=== PATIENT | female | born 1960 | race Caucasian/White ===

== ENCOUNTER → 2020-10-21 15:18 | Outpatient (CLI) | payer OTHER, SELFPAY ==
--- NOTE | ~2020-10-21 | XR_ITS ---
XR wrist RT min 3V DATE: 10/21/2020 15:49 INDICATION: Painful basal joint TECHNIQUE: 4 views COMPARISON: None FINDINGS: There is severe osteoarthritis at the first carpometacarpal joint with hypertrophic spurrin g. Approximately 4 x 5.5 mm benign cystic lesion or erosion of the lunate bone with sclerotic margin, ex tending through the proximal medial cortex of the lunate bone. No fracture or dislocation, periosteal reaction or bone destruction. No chondrocalcinosis. IMPRESSION: Severe osteoarthritic change at the first carpal metacarpal joint Benign prominent cyst or erosion at the proximal medial aspect of the lunate bone Reviewed, dictated and finalized at location A. IMPRESSION: Severe osteoarthritic change at the first carpal metacarpal joint Benign prominent cyst or erosion at the proximal medial aspect of the lunate naman ne
--- NOTE | ~2020-10-21 | XR_ITS ---
XR wrist LT min 3V DATE: 10/21/2020 15:49 INDICATION: Painful basal joint, primary osteoarthritis. TECHNIQUE: 4 views COMPARISON: None FINDINGS: There is severe osteoarthritic change at the first carpometacarpal joint with joint space n arrowing and degenerative spurring. Approximately 4.9 x 5 mm calcification is noted at the lateral aspect of the carpus. Benign proximal lunate cyst. No fracture or dislocation, periosteal reaction or bone destruction is evident.. IMPRESSION: Degenerative changes, most pronounced at the first carpometacarpal joint Reviewed, dictated and finalized at location A.
== END ==
PROVIDERS: Visit Provider Plastic Surgery
DX: M19.031 Primary osteoarthritis, right wrist (principal); M19.032 Primary osteoarthritis, left wrist; M18.0 Bilateral primary osteoarthritis of first carpometacarpal joints
CPT/HCPCS: 73110

== ENCOUNTER → 2020-12-26 16:25 | Outpatient (CLI) | payer OTHER, SELFPAY ==
--- NOTE | ~2020-12-26 | MM_ITS ---
EXAMINATION: MM screening [facility] BI w lee HISTORY: Screening mammogram TECHNIQUE: Craniocaudal and mediolateral oblique 3-D tomosynthesis images were obtained and synthetic 2-D images were generated. CAD analysis was submitted and interpreted. COMPARISON: 03/03/2018, 02/21/2018, 06/14/2014, 01/28/2012 BREAST PARENCHYMAL COMPOSITION: There are scattered areas of fibroglandular density. FINDINGS: Subareolar asymmetry of the right breast on the mediolateral oblique view has an appearance similar to prior mammograms. There is no evidence of suspicious mass, calcification, or architectura l distortion to suggest malignancy in either breast. There has been no suspicious interval change. IMPRESSION: 1. No mammographic evidence of malignancy. 2. Recommend routine screening mammography in one year. BI-RADS Category 2: Benign finding(s). Reviewed, dictated and finalized at location A.
== END ==
PROVIDERS: PCP Physician Assistant; Visit Provider Physician Assistant
DX: Z12.31 Encounter for screening mammogram for malignant neoplasm of breast (principal)
CPT/HCPCS: 77063; 77067

== ENCOUNTER → 2022-02-09 16:48 | Outpatient (CLI) | payer OTHER, SELFPAY ==
--- NOTE | ~2022-02-09 | MM_ITS ---
EXAMINATION: MM screening [facility] BI w lee HISTORY: Screening mammogram TECHNIQUE: Craniocaudal and mediolateral oblique 3-D tomosynthesis images were obtained and synthetic 2-D images were generated. CAD analysis was submitted and interpreted. COMPARISON: 12/26/2020, 03/03/2018, 02/21/2018 BREAST PARENCHYMAL COMPOSITION: There are scattered areas of fibroglandular density. FINDINGS: There is no suspicious mass, calcification, or architectural distortion to suggest malignan cy in either breast. There has been no suspicious interval change. IMPRESSION: 1. No mammographic evidence of malignancy. 2. Recommend routine screening mammography in one year. BI-RADS Category 1: Negative Reviewed, dictated and finalized at location A.
== END ==
PROVIDERS: PCP Physician Assistant; Visit Provider Physician Assistant
DX: Z12.31 Encounter for screening mammogram for malignant neoplasm of breast (principal)
CPT/HCPCS: 77063; 77067

== ENCOUNTER 2022-09-28 18:50 | Emergency (ER) | payer OTHER, SELFPAY ==
--- NOTE | ~2022-09-28 | XR_ITS ---
XR knee LT min 4V 09/28/2022 19:18 Indication: Left knee pain Procedure: 5 views left knee Comparison: No prior studies for comparison. Findings: There is anatomic alignment. No acute fracture or traumatic malalignment. There is OSSIFICA TION of the medial collateral ligament at the proximal insertion on the medial femoral condyle (i.e. Jackelyn Stieda lesion). Impression: 1: No acute bone or joint abnormality. Reviewed, dictated and finalized at location A. Impression: 1: No acute bone or joint abnormality.
[2022-09-28 18:56] VITALS: BP 153/87; PULSE 113; RESP 16; TEMP 36.9; O2SAT 97
--- NOTE | 2022-09-28 18:56 | ED.LOWEXIN ---
HPI - Extremity Injury (Lower) General Chief Complaint: Extremity Injury, Lower Stated Complaint: left leg pain Time Seen by Provider: 09/28/22 18:58 Source: patient Mode of arrival: ambulatory Limitations: no limitations History of Present Illness HPI Narrative: 62 y/o female presented for c/o pain behind the left knee after injury this evening. She states she was performing jumping jacks, she landed wall and felt immediate pain to the back of the knee, at about 1730. Endorses pain is only with ambulating. No pain at rest. Rates pain 7/10 with weight-bearing. She denies numbness, tingling, weakness, or swelling to the lower extremity. Has not taken anything for pain. Related Data Allergies Allergy/AdvReac Type Severity Reaction Status Date / Time No Known Allergies Allergy Verified 09/28/22 18:59 Review of Systems Review of Systems: CONSTITUTIONAL: Denies body aches, fever, chills EYES: Denies visual changes ENT: Denies rhinorrhea, congestion CARDIOVASCULAR: Denies chest pain, palpitations, or edema. RESPIRATORY: Denies cough or dyspnea. GASTROINTESTINAL: Denies abdominal pain, nausea, vomiting, or diarrhea. SKIN: Denies rash, itching, or wounds. MUSCULOSKELETAL: per HPI NEUROLOGIC: Denies headache, numbness, tingling, or weakness. All systems reviewed & are unremarkable except as noted in HPI and below PMFSH Past Medical History Medical History (Updated 09/28/22 @ 19:25 by Neida Temple APRN) Dupuytrens contracture Social History Social History Smoking status: Never smoker Alcohol intake: never Comments At time of signature, I have reviewed and agree with nursing past medical, surgical, social and family history unless otherwise noted. Please see nursing chart for further information. There is no relevant family history pertinent to the presenting complaint Exam Narrative: GENERAL: Well appearing and in no acute distress. HEAD: Normocephalic, atraumatic. NECK: Supple. CHEST: Speaks in full sentences. No respiratory distress. HEART: Regular rate and rhythm. Normal and equal peripheral pulses. EXTREMITIES: LLE has normal strength and sensation, normal range of motion at knee. No edema or ecchymosis, No point tenderness. No open wounds, or obvious deformity; alignment normal, pulse palpable and equal bilaterally, skin warm, dry, pink. Capillary refill less than 3 seconds. Ambulating with limp due to pain. SKIN: Warm, dry, no rash. NEURO: Alert and oriented x3. PSYCH: Normal mood and affect Course Course Emergency Course: Patient is aware of diagnosis, understands and agrees to treatment plan. Anticipatory guidance given. Patient agrees to follow-up as directed and is aware of reasons to seek care at the emergency department. Portions of this record may have been created with voice recognition software Level of Care: Express Care Visit Vital Signs Vital signs: Vital Signs Temperature 98.5 F 09/28/22 18:56 Pulse Rate 113 H 09/28/22 18:56 Respiratory Rate 16 09/28/22 18:56 Blood Pressure 153/87 H 09/28/22 18:56 Pulse Oximetry 97 09/28/22 18:56 Oxygen Delivery Room Air 09/28/22 18:56 Temperature 98.5 F 09/28/22 18:59 Pulse Rate 113 H 09/28/22 18:59 Respiratory Rate 16 09/28/22 18:59 Blood Pressure 153/87 H 09/28/22 18:59 Pulse Oximetry 97 09/28/22 18:59 Oxygen Delivery Room Air 09/28/22 18:59 Reviewed MDM - Extremity Injury (Lower) MDM Narrative Medical decision making narrative: Results of x-ray reviewed with patient. Discussed physical exam findings. Advised supportive measures and signs/symptoms to go to the ER. Pt is appropriate for outpt treatment and f/u. Differential Diagnosis Differential diagnosis: Likely acute internal derangement of knee and other (Arthralgia, joint effusion, bursitis, tendonitis, sprain/strain) Discharge Plan Discharge Clinical Impression: Acute knee
[2022-09-28 18:59] VITALS: BP 153/87; PULSE 113; RESP 16; TEMP 36.9; O2SAT 97
== END 2022-09-28 19:43 | disposition home or self-care (01) ==
PROVIDERS: Emergency Provider Nurse Practitioner Family
DX: M25.562 Pain in left knee (principal)
CPT/HCPCS: 73564; 99213; G0463

== ENCOUNTER → 2022-09-30 09:38 | Outpatient (CLI) | payer OTHER, SELFPAY ==
--- NOTE | ~2022-09-30 | XR_ITS ---
Right Hand Technique: PA, oblique, and lateral views were obtained. Clinical History: Posterior arthritis Findings: No acute fracture or dislocation is seen. There is moderate degenerative change at the firs t CMC joint. Soft tissues are unremarkable. Impression: Moderate degenerative change at the first CMC joint. Reviewed, dictated and finalized at [facility]. Impression: Moderate degenerative change at the first CMC joint.
--- NOTE | ~2022-09-30 | XR_ITS ---
Left Hand Technique: PA, oblique, and lateral views were obtained. Clinical History: Osteoarthritis Findings: No acute fracture or dislocation is seen. There is apparent boutonniere deformity of the fi fth digit. There is moderate degenerative change at the first CMC joint. Soft tissues are unremarkabl e. Impression: No acute fracture or dislocation seen. Moderate degenerative change at the first CMC joint. Boutonniere deformity of the fifth digit. Reviewed, dictated and finalized at location M. Impression: No acute fracture or dislocation seen. Moderate degenerative change at the first CMC joint. Boutonniere deformity of the fifth digit.
== END ==
PROVIDERS: PCP Nurse Practitioner Family; Visit Provider Nurse Practitioner Family
DX: M19.041 Primary osteoarthritis, right hand (principal); M19.042 Primary osteoarthritis, left hand
CPT/HCPCS: 73130

== ENCOUNTER → 2023-04-02 10:19 | Outpatient (CLI) | payer OTHER, SELFPAY ==
--- NOTE | ~2023-04-02 | MM_ITS ---
EXAMINATION: MM screening [facility] w lee HISTORY: Screening mammogram TECHNIQUE: Craniocaudal and mediolateral oblique 3-D tomosynthesis images were obtained and synthetic 2-D images were generated. CAD analysis was submitted and interpreted. COMPARISON: 02/09/2022, 12/26/2020 BREAST PARENCHYMAL COMPOSITION:There are scattered areas of fibroglandular density. FINDINGS: No suspicious mass, calcification, or architectural distortion are identified in either milton ast to suggest malignancy. There has been no suspicious interval change. IMPRESSION: No mammographic evidence of malignancy. Recommend routine screening mammography in one year. BI-RADS Category 1: Negative Reviewed, dictated and finalized at location .
== END ==
PROVIDERS: PCP Nurse Practitioner Family; Visit Provider Nurse Practitioner Family
DX: Z12.31 Encounter for screening mammogram for malignant neoplasm of breast (principal)
CPT/HCPCS: 77063; 77067

== ENCOUNTER 2024-12-13 15:46 | Outpatient (CLI) | payer OTHER, SELFPAY ==
--- NOTE | ~2024-12-13 | MM_ITS ---
EXAMINATION: MM screening [facility] w lee HISTORY: Screening mammogram TECHNIQUE: Craniocaudal and mediolateral oblique 3-D tomosynthesis images were obtained and synthetic 2-D images were generated. CAD analysis was submitted and interpreted. COMPARISON: No prior mammogram is available for comparison at this institution. BREAST PARENCHYMAL COMPOSITION:Not Dense. There are scattered areas of fibroglandular density. FINDINGS: No suspicious mass, calcification, or architectural distortion are identified in either milton ast to suggest malignancy. There has been no suspicious interval change. IMPRESSION: No mammographic evidence of malignancy. Recommend routine screening mammography in one year. BI-RADS Category 1: Negative Reviewed, dictated and finalized at location .
== END 2024-12-13 15:47 | disposition home or self-care (01) ==
LOC: MICIMG 15:47
PROVIDERS: PCP Nurse Practitioner Family; Visit Provider Nurse Practitioner Family
DX: Z12.31 Encounter for screening mammogram for malignant neoplasm of breast (principal)
CPT/HCPCS: 77063; 77067